=== PATIENT | female | born 1950 | race Caucasian/White ===

== ENCOUNTER 2017-01-31 19:07 | Inpatient (IN) | payer OTHER, MEDICARE ==
[~2017-01-31] VITALS: Ht 157.5 cm; Wt 70.2 kg
[~2017-01-31 19:07] MED LIST: ALPRAZOLAM0.5 MG PO; AMARYL2 MG PO; AMBIEN10 MG PO; ASPIR-TRIN325 M1 PO; Aggrenox PO; Aldactone PO; Augmentin PO; BENICAR40 MG PO; BRILINTA90 MG PO; CATAPRES-TTS 21 EACH TD; CILOSTAZOL50 MG PO; CLONIDINE1 EAC1 TD; COZAAR100 MG PO; CRESTOR40 MG PO; Cozaar PO; Ecotrin PO; FENOFIBRATE160 M1 PO; FIORICET,ESG1 TABLET PO; FLEXERIL5 MG PO; FOLIC ACID0.4 MG PO; FOLIC ACID0.8 MG PO; Flexeril PO; GABAPENTIN100 MG PO; INDERAL LA60 MG PO; ISOSORBIDE MONO30 MG PO; Imdur PO; LABETALOL HCL100 MG PO; LEXAPRO20 MG; LEXAPRO20 MG PO; LO-DOSE ASPIRIN81 M1 PO; LOFIBRA,TRIGLI160 MG PO; LOSARTAN POTAS100 MG PO; LOSARTAN POTASS50 MG PO; LOTRISONE LOTIO30 ML TP; LOVAZA1 GM PO; Lofibra PO; Lovaza PO; METOPROLOL SUCC25 MG PO; METOPROLOL SUCC50 MG PO; MOXEZA3 ML LEFT EYE; NITROSTAT0.4 MG SL; NORVASC5 MG PO; Normodyne,Trandate PO; Norvasc PO; OMEPRAZOLE40 M1 PO; PHISOHEX148 ML TP; Pletal PO; RANEXA500 MG PO; SKELAXIN400 M1 PO; SPIRONOLACTONE50 MG PO; Skelaxin PO; VOLTAREN75 MG PO; XANAX0.5 MG PO; Xanax PO; ZOLPIDEM TARTRA10 MG PO
[2017-01-31 19:29] LABS: HEMATOCRIT 18.8 % (36.0-46.0); MCH 26.2 PG (29.0-34.0); MCHC 29.8 G/DL (30.0-36.0); MCV 87.9 FL (83-99); MEAN PLAT.VOLUME 10.6 uM^3 (9.5-12.4); PLATELET COUNT 445 K/uL (156-360); RBC DIS.WIDTH-CV 16.3 % (11.8-14.6); RBC DIS.WIDTH-SD 49.6 % (39-53); RED BLOOD COUNT 2.14 M/uL (3.80-5.20)
[2017-01-31 19:34] LABS: CHLORIDE 110 mEq/L (99-109); POTASSIUM 3.9 mEq/L (3.7-5.4); SODIUM 140 mEq/L (136-147)
[2017-01-31 19:36] LABS: GLUCOSE 189 mg/dL (70-99)
[2017-01-31 19:37] LABS: ANION GAP 11 MEQ/L (2-14)
[2017-01-31 19:40] LABS: GFR ESTIMATE (CALCULATED) 52 mL/min/
[2017-01-31 19:41] LABS: UREA NITROGEN (BUN) 24 mg/dL (9-23)
[2017-01-31 19:46] LABS: TROP-I INTERPRETATION NEGATIVE; TROPONIN-I 0.01 ng/mL (0.0-0.30)
[2017-01-31 19:54] LABS: EOSINOPHIL (%) 1.7 % (0-5); EOSINOPHIL COUNT 0.2 K/uL (0-0.3); IMMATURE GRANULOCYTE (%) 0.4 % (0.0-0.7); IMMATURE GRANULOCYTE COUNT 0.6 K/uL; LYMPHOCYTE COUNT 2.4 K/uL (1.0-2.8); MONOCYTE (%) 6.4 % (3-12); MONOCYTE COUNT 0.9 K/uL (0-0.8); NEUTROPHIL (%) 74.1 % (45-76); NEUTROPHIL COUNT 10.5 K/uL (1.8-6.4)
[2017-01-31 20:03] LABS: TOTAL BILIRUBIN 0.2 mg/dL (0.0-1.0)
[2017-01-31 20:04] LABS: ALKALINE PHOSPHATASE 116 IU/L (3-129)
[2017-01-31 20:06] LABS: DIRECT BILIRUBIN 0.1 mg/dL (0.0-0.3)
[2017-01-31 21:20] VITALS: BP 168/99
[2017-01-31] MEDS ORDERED: RANEXA500 MG PO (21:20)
[2017-01-31 21:39] VITALS: BP 171/100
[2017-01-31 22:37] VITALS: BP 116/78
[2017-01-31 23:25] VITALS: BP 184/96
[2017-01-31 23:44] VITALS: BP 165/109
[2017-02-01] VITALS (10 sets, daily range): BP systolic 98–184; BP diastolic 57–92
[2017-02-01 02:45] LABS: MCV 88.5 FL (83-99)
[2017-02-01 03:02] LABS: TROP-I INTERPRETATION NEGATIVE; TROPONIN-I 0.04 ng/mL (0.0-0.30)
[2017-02-01 06:37] LABS: POINT-OF-CARE METER ID UU13113781
[2017-02-01 06:56] LABS: HEMATOCRIT 29.4 % (36.0-46.0)
[2017-02-01 08:39] LABS: TROP-I INTERPRETATION NEGATIVE; TROPONIN-I 0.05 ng/mL (0.0-0.30)
[2017-02-01 08:47] LABS: Estimated Average Glucose 128 mg/dL (70-123); HEMOGLOBIN A1c (GLYCOHEMOGLOB) 6.1 % HGB (Below 5.7)
[2017-02-01 12:49] LABS: MCV 87.1 FL (83-99)
[2017-02-01 13:02] LABS: PROTHROMBIN TIME 10.2 (9.2-11.2)
[2017-02-01 13:05] LABS: GLUCOSE 141 mg/dL (70-99)
[2017-02-01 19:25] LABS: HEMATOCRIT 28.4 % (36.0-46.0); MCV 87.9 FL (83-99)
[2017-02-01 20:54] LABS: POINT-OF-CARE METER ID UU13113698
[2017-02-02 00:27] LABS: HEMATOCRIT 27.5 % (36.0-46.0); MCV 87.9 FL (83-99)
[2017-02-02 04:50] VITALS: BP 104/50
[2017-02-02 05:15] LABS: POINT-OF-CARE METER ID UU13113781
[2017-02-02 07:27] LABS: ALKALINE PHOSPHATASE 89 IU/L (3-129); ANION GAP 8 MEQ/L (2-14); CHLORIDE 108 MEQ/L (99-109); GFR ESTIMATE (CALCULATED) 52 mL/min/; GLUCOSE 119 mg/dL (70-99); POTASSIUM 4.1 MEQ/L (3.7-5.4); SAMPLE HEMOLYSIS CHECK 0; SAMPLE ICTERIC CHECK 0; SAMPLE LIPEMIA CHECK 0; SODIUM 141 MEQ/L (136-147); TOTAL BILIRUBIN 0.3 MG/DL (0.0-1.0); UREA NITROGEN (BUN) 22 mg/dL (9-23)
[2017-02-02 07:38] LABS: EOSINOPHIL (%) 2.2 % (0-5); EOSINOPHIL COUNT 0.2 K/uL (0-0.3); HEMATOCRIT 29.3 % (36.0-46.0); IMMATURE GRANULOCYTE (%) 0.4 % (0.0-0.7); LYMPHOCYTE COUNT 2.1 K/uL (1.0-2.8); MCH 28.4 PG (29.0-34.0); MCHC 32.1 G/DL (30.0-36.0); MCV 88.5 FL (83-99); MEAN PLAT.VOLUME 10.9 uM^3 (9.5-12.4); MONOCYTE (%) 8.4 % (3-12); MONOCYTE COUNT 0.8 K/uL (0-0.8); NEUTROPHIL (%) 65.3 % (45-76); NEUTROPHIL COUNT 5.9 K/uL (1.8-6.4); RBC DIS.WIDTH-CV 15.9 % (11.8-14.6); RBC DIS.WIDTH-SD 50.5 % (39-53)
[2017-02-02 07:39] LABS: PLATELET COUNT 257 K/uL (156-360); RED BLOOD COUNT 3.31 M/uL (3.80-5.20); WHITE BLOOD COUNT 9.1 K/uL (4.1-10.2)
[2017-02-02 08:52] VITALS: BP 123/67
[2017-02-02 11:20] VITALS: BP 115/65
[2017-02-02 12:12] LABS: POINT-OF-CARE METER ID UU13113698
[2017-02-02 16:28] VITALS: BP 170/93
[2017-02-02 17:46] LABS: POINT-OF-CARE METER ID UU13113698
[2017-02-02 19:52] VITALS: BP 160/93
[2017-02-02 23:20] VITALS: BP 166/84
[2017-02-02 23:55] LABS: POINT-OF-CARE METER ID UU14174216
[2017-02-03 04:35] VITALS: BP 146/74
[2017-02-03 07:01] LABS: HEMATOCRIT 29.6 % (36.0-46.0); MCHC 31.1 G/DL (30.0-36.0); MEAN PLAT.VOLUME 11.1 uM^3 (9.5-12.4); PLATELET COUNT 265 K/uL (156-360); RBC DIS.WIDTH-CV 16.2 % (11.8-14.6); RBC DIS.WIDTH-SD 51.4 % (39-53); RED BLOOD COUNT 3.29 M/uL (3.80-5.20); WHITE BLOOD COUNT 8.2 K/uL (4.1-10.2)
[2017-02-03 07:28] LABS: ANION GAP 9 MEQ/L (2-14); CHLORIDE 106 MEQ/L (99-109); GFR ESTIMATE (CALCULATED) 59 mL/min/; SAMPLE HEMOLYSIS CHECK 0; SAMPLE ICTERIC CHECK 0; SAMPLE LIPEMIA CHECK 0; SODIUM 142 MEQ/L (136-147); UREA NITROGEN (BUN) 15 mg/dL (9-23)
[2017-02-03 07:30] LABS: GLUCOSE 190 mg/dL (70-99)
[2017-02-03 08:00] LABS: POINT-OF-CARE USER ID NUTSLF44
[2017-02-03 09:16] VITALS: BP 157/83
[2017-02-03] MEDS ORDERED: PROTONIX40 MG PO (09:29)
[2017-02-03] MEDS ORDERED: NICOTINE PATCH1 EAC2 TD (09:29)
[2017-02-03] MEDS ORDERED: IRON325 MG PO (09:32)
[2017-02-03 10:26] LABS: POC NON-PRINT COM 1 ND
[2017-02-03] MEDS ORDERED: NICODERM CQ1 EAC2 TD (14:08)
[2017-02-03] MEDS ORDERED: NEURONTIN100 MG PO (14:09)
[2017-02-03] MEDS ORDERED: XANAX0.5 MG PO (14:10)
[2017-02-03] MEDS ORDERED: ISOSORBIDE MONO30 MG PO (14:11)
[2017-02-03] MEDS ORDERED: SPIRONOLACTONE50 MG PO (14:12)
[2017-02-03] MEDS ORDERED: BRILINTA90 MG PO (15:35)
== END 2017-02-03 11:13 | disposition home or self-care (01) | DRG 378 ==
LOC: EME → EDBD 19:07 → EME 19:07 → EDOF 22:29 → 4EAST 22:29
PROVIDERS: Family Medicine; Hospitalist; Internal Medicine
PROC: 30233N1 Transfusion of Nonautologous Red Blood Cells into Peripheral Vein, Percutaneous Approach (ICD-10-PCS; principal; 2017-02-01)
PROC: 0DB68ZX Excision of Stomach, Via Natural or Artificial Opening Endoscopic, Diagnostic (ICD-10-PCS; 2017-02-02)
DX: K29.01 Acute gastritis with bleeding (principal); D62 Acute posthemorrhagic anemia; J44.9 Chronic obstructive pulmonary disease, unspecified; I70.1 Atherosclerosis of renal artery; I69.398 Other sequelae of cerebral infarction; E11.9 Type 2 diabetes mellitus without complications; D50.0 Iron deficiency anemia secondary to blood loss (chronic); I10 Essential (primary) hypertension; I25.118 Atherosclerotic heart disease of native coronary artery with other forms of angina pectoris; I73.9 Peripheral vascular disease, unspecified; Z95.1 Presence of aortocoronary bypass graft; F17.210 Nicotine dependence, cigarettes, uncomplicated; Z85.118 Personal history of other malignant neoplasm of bronchus and lung; K20.9 Esophagitis, unspecified; K26.9 Duodenal ulcer, unspecified as acute or chronic, without hemorrhage or perforation; K31.9 Disease of stomach and duodenum, unspecified; F41.9 Anxiety disorder, unspecified; E66.9 Obesity, unspecified; Z95.5 Presence of coronary angioplasty implant and graft; Z95.2 Presence of prosthetic heart valve; E78.5 Hyperlipidemia, unspecified; I25.2 Old myocardial infarction; K44.9 Diaphragmatic hernia without obstruction or gangrene; K29.80 Duodenitis without bleeding; R47.9 Unspecified speech disturbances; T39.395A Adverse effect of other nonsteroidal anti-inflammatory drugs [NSAID], initial encounter
CPT/HCPCS: 36415; 71020; 74177; 80048; 80053; 80076; 82272; 82948; 83036; 84484; 84999; 85014; 85018; 85025; 85027; 85610; 86850; 86900; 86901; 86920; 88305; 88342 TC; 93005; 99281; 99285; C9113; J1815; J1940; J2270; J2405; P9016; P9040

== ENCOUNTER 2017-02-05 07:11 | Day surgery (SDC) | payer OTHER, MEDICARE ==
[~2017-02-05] VITALS: Ht 157.5 cm; Wt 67.1 kg
[~2017-02-05 07:11] MED LIST changes: +IRON325 MG PO; +NEURONTIN100 MG PO; +NICODERM CQ1 EAC2 TD; +NICOTINE PATCH1 EAC2 TD; +PROTONIX40 MG PO
[2017-02-05 07:42] LABS: POINT-OF-CARE METER ID UU14174212
[2017-02-05 07:46] VITALS: BP 86/52
[2017-02-05 08:24] LABS: HEMATOCRIT 29.2 % (36.0-46.0); MCV 91.3 FL (83-99)
[2017-02-05 09:03] LABS: METH RESISTANT S AUREUS PCR POSITIVE (NEGATIVE)
[2017-02-05 09:04] LABS: PROBE CHECK PASS
[2017-02-05 11:34] VITALS: BP 132/70
== END 2017-02-05 11:35 | disposition home or self-care (01) ==
LOC: SDC
PROVIDERS: Anesthesiology; Orthopaedic Surgery Hand Surgery
PROC: 0JBJ0ZX Excision of Right Hand Subcutaneous Tissue and Fascia, Open Approach, Diagnostic (ICD-10-PCS; principal; 2017-02-05)
DX: M79.641 Pain in right hand (principal); M79.89 Other specified soft tissue disorders; M79.5 Residual foreign body in soft tissue; S61.411S Laceration without foreign body of right hand, sequela; E11.9 Type 2 diabetes mellitus without complications; I10 Essential (primary) hypertension; Z86.73 Personal history of transient ischemic attack (TIA), and cerebral infarction without residual deficits; Z85.118 Personal history of other malignant neoplasm of bronchus and lung; Z82.49 Family history of ischemic heart disease and other diseases of the circulatory system; Z83.3 Family history of diabetes mellitus; Z79.82 Long term (current) use of aspirin; Z79.01 Long term (current) use of anticoagulants
CPT/HCPCS: 82948; 85014; 85018; 87641; 88304; J0690; J2250; J2405; J3010

== ENCOUNTER → 2017-02-08 | Outpatient (CLI) | payer OTHER, MEDICARE | END | disposition home or self-care (01) | LOC: NUC 09:00 | DX: K92.2 Gastrointestinal hemorrhage, unspecified (principal) | CPT/HCPCS: 78278; A9512; A9560 ==

== ENCOUNTER 2017-11-03 14:38 | Inpatient (IN) | payer OTHER, MEDICARE ==
[~2017-11-03] VITALS: Ht 157.5 cm; Wt 76.5 kg
[~2017-11-03 14:38] MED LIST changes: +ALDACTONE25 MG PO; +IMDUR60 MG PO; -LOFIBRA,TRIGLI160 MG PO
[2017-11-03 15:14] LABS: BASOPHIL COUNT 0.1 K/uL (0-0.1); EOSINOPHIL COUNT 0.3 K/uL (0-0.3); HEMATOCRIT 38.4 % (36.0-46.0); IMMATURE GRANULOCYTE (%) 0.6 % (0.0-0.7); IMMATURE GRANULOCYTE COUNT 0.1 K/uL; INSTRUMENT ABS NEUTROPHIL CT 10.5 K/uL; LYMPHOCYTE COUNT 2.1 K/uL (1.0-2.8); MCH 30.4 PG (29.0-34.0); MCHC 33.6 G/DL (30.0-36.0); MCV 90.6 FL (83-99); MEAN PLAT.VOLUME 11.1 uM^3 (9.5-12.4); NEUTROPHIL (%) 74.9 % (45-76); NEUTROPHIL COUNT 10.5 K/uL (1.8-6.4); PLATELET COUNT 429 K/uL (156-360); RBC DIS.WIDTH-CV 13.5 % (11.8-14.6); RED BLOOD COUNT 4.24 M/uL (3.80-5.20)
[2017-11-03 15:22] LABS: CHLORIDE 104 mEq/L (99-109); POTASSIUM 4.9 mEq/L (3.7-5.4); SODIUM 134 mEq/L (136-147)
[2017-11-03 15:24] LABS: GLUCOSE 132 mg/dL (70-99)
[2017-11-03 15:25] LABS: ANION GAP 9 MEQ/L (2-14)
[2017-11-03 15:28] LABS: GFR ESTIMATE (CALCULATED) 26 mL/min/
[2017-11-03 15:29] LABS: UREA NITROGEN (BUN) 49 mg/dL (9-23)
[2017-11-03 16:53] LABS: ADD MIUA? YES; BILIRUBIN NEGATIVE; BLOOD MODERATE; COLOR YELLOW ((YELLOW)); GLUCOSE (STRIP) NEGATIVE; KETONES 5; LEUKOCYTES LARGE; NITRITE NEGATIVE; PROTEIN (STRIP) NEGATIVE; UROBILINOGEN 0.2 MG/DL (0.2-1.0)
[2017-11-03 17:05] LABS: BACTERIA 1+ /HPF; EPITHELIAL CELLS RARE /HPF; MUCUS TRACE /LPF; RED BLOOD CELLS 15-20 /HPF (0-5); UCUL ADDED? YES; WHITE BLOOD CELLS TNTC /HPF (0-5)
[2017-11-03] MEDS ORDERED: ACIDOPHILUS LA1 EAC1 PO (20:08)
[2017-11-03] MEDS ORDERED: ROXICODONE5 MG PO (20:08)
[2017-11-03] MEDS ORDERED: CEFTIN250 MG PO (20:10)
[2017-11-03] MEDS ORDERED: COZAAR50 MG PO (20:11)
[2017-11-03] MEDS ORDERED: ULTRAM50 MG PO (20:11)
[2017-11-03] MEDS ORDERED: BACTRIM,SEPT1 TABLET PO (20:11)
[2017-11-03 23:05] VITALS: BP 113/60
[2017-11-04 04:02] VITALS: BP 110/62
[2017-11-04 07:10] VITALS: BP 101/55
[2017-11-04 07:19] LABS: BASOPHIL COUNT 0.1 K/uL (0-0.1); EOSINOPHIL (%) 3.2 % (0-5); EOSINOPHIL COUNT 0.3 K/uL (0-0.3); HEMATOCRIT 32.1 % (36.0-46.0); IMMATURE GRANULOCYTE (%) 0.6 % (0.0-0.7); IMMATURE GRANULOCYTE COUNT 0.1 K/uL; INSTRUMENT ABS NEUTROPHIL CT 5.5 K/uL; LYMPHOCYTE COUNT 2.1 K/uL (1.0-2.8); MCH 29.9 PG (29.0-34.0); MCHC 32.7 G/DL (30.0-36.0); MCV 91.5 FL (83-99); MEAN PLAT.VOLUME 11.2 uM^3 (9.5-12.4); MONOCYTE (%) 9.5 % (3-12); MONOCYTE COUNT 0.8 K/uL (0-0.8); NEUTROPHIL (%) 62.3 % (45-76); NEUTROPHIL COUNT 5.5 K/uL (1.8-6.4); PLATELET COUNT 313 K/uL (156-360); RBC DIS.WIDTH-CV 13.5 % (11.8-14.6); RBC DIS.WIDTH-SD 45.1 % (39-53); RED BLOOD COUNT 3.51 M/uL (3.80-5.20); WHITE BLOOD COUNT 8.8 K/uL (4.1-10.2)
[2017-11-04 07:20] LABS: ANION GAP 5 MEQ/L (2-14); CHLORIDE 107 MEQ/L (99-109); GFR ESTIMATE (CALCULATED) 34 mL/min/; POTASSIUM 4.6 MEQ/L (3.7-5.4); SAMPLE HEMOLYSIS CHECK 0; SAMPLE ICTERIC CHECK 0; SAMPLE LIPEMIA CHECK 0; SODIUM 135 MEQ/L (136-147); UREA NITROGEN (BUN) 40 mg/dL (9-23)
[2017-11-04 07:23] LABS: GLUCOSE 275 mg/dL (70-99)
[2017-11-04 09:24] LABS: POINT-OF-CARE METER ID UU14174225
[2017-11-04 12:14] VITALS: BP 93/66
[2017-11-04 12:47] LABS: CREATINE KINASE 31 IU/L (1-294)
[2017-11-04 12:53] LABS: POINT-OF-CARE METER ID UU13113717
[2017-11-04 13:29] LABS: POINT-OF-CARE METER ID UU13113717
[2017-11-04 14:34] LABS: POINT-OF-CARE METER ID UU13113717
[2017-11-04 16:44] VITALS: BP 119/69
[2017-11-04 17:40] LABS: POINT-OF-CARE METER ID UU14174225
[2017-11-04 19:45] VITALS: BP 134/66; BP 98/60
[2017-11-04 23:48] LABS: POINT-OF-CARE METER ID UU14174225
[2017-11-04 23:51] VITALS: BP 128/71
[2017-11-05 03:52] VITALS: BP 122/68
[2017-11-05 05:33] LABS: POINT-OF-CARE METER ID UU14174225
[2017-11-05 06:53] LABS: HEMATOCRIT 33.3 % (36.0-46.0); MCH 29.6 PG (29.0-34.0); MCHC 32.7 G/DL (30.0-36.0); MCV 90.5 FL (83-99); MEAN PLAT.VOLUME 10.6 uM^3 (9.5-12.4); PLATELET COUNT 307 K/uL (156-360); RBC DIS.WIDTH-CV 13.4 % (11.8-14.6); RBC DIS.WIDTH-SD 44.5 % (39-53); RED BLOOD COUNT 3.68 M/uL (3.80-5.20); WHITE BLOOD COUNT 6.6 K/uL (4.1-10.2)
[2017-11-05 07:31] LABS: ANION GAP 6 MEQ/L (2-14); CHLORIDE 109 MEQ/L (99-109); GFR ESTIMATE (CALCULATED) 47 mL/min/; POTASSIUM 4.4 MEQ/L (3.7-5.4); SAMPLE HEMOLYSIS CHECK 0; SAMPLE ICTERIC CHECK 0; SAMPLE LIPEMIA CHECK 0; SODIUM 138 MEQ/L (136-147); UREA NITROGEN (BUN) 25 mg/dL (9-23)
[2017-11-05 07:32] LABS: GLUCOSE 124 mg/dL (70-99); VANCOMYCIN, TROUGH 8.6 MCG/ML (10-20)
[2017-11-05 07:48] VITALS: BP 111/69
[2017-11-05 11:33] VITALS: BP 136/76
[2017-11-05 12:19] LABS: POINT-OF-CARE METER ID UU14174225
[2017-11-05 15:47] VITALS: BP 125/76
[2017-11-05 18:17] LABS: POINT-OF-CARE METER ID UU13113717
[2017-11-05 23:12] VITALS: BP 136/65
[2017-11-06 00:15] VITALS: BP 137/72
[2017-11-06 00:18] LABS: POINT-OF-CARE METER ID UU14174225
[2017-11-06 06:22] LABS: POINT-OF-CARE METER ID UU14174225
[2017-11-06 07:37] VITALS: BP 132/70
[2017-11-06] MEDS ORDERED: VIBRAMYCIN100 MG PO (09:53)
[2017-11-06 13:00] LABS: POINT-OF-CARE METER ID UU13113717
[2017-11-06 16:56] LABS: POINT-OF-CARE METER ID UU13113675
[2017-11-06 23:59] VITALS: BP 132/77
[2017-11-07 00:25] LABS: POINT-OF-CARE METER ID UU14174225
[2017-11-07 06:13] LABS: MCH 29.8 PG (29.0-34.0); MCHC 32.6 G/DL (30.0-36.0); MCV 91.6 FL (83-99); MEAN PLAT.VOLUME 10.9 uM^3 (9.5-12.4); PLATELET COUNT 322 K/uL (156-360); RBC DIS.WIDTH-CV 13.4 % (11.8-14.6); RBC DIS.WIDTH-SD 45.3 % (39-53); RED BLOOD COUNT 3.82 M/uL (3.80-5.20); WHITE BLOOD COUNT 7.6 K/uL (4.1-10.2)
[2017-11-07 06:40] LABS: ANION GAP 8 MEQ/L (2-14); CHLORIDE 106 MEQ/L (99-109); GFR ESTIMATE (CALCULATED) 47 mL/min/; GLUCOSE 193 mg/dL (70-99); POTASSIUM 4.5 MEQ/L (3.7-5.4); SAMPLE HEMOLYSIS CHECK 0; SAMPLE ICTERIC CHECK 0; SAMPLE LIPEMIA CHECK 0; SODIUM 138 MEQ/L (136-147); UREA NITROGEN (BUN) 19 mg/dL (9-23)
[2017-11-07 07:55] VITALS: BP 117/73
[2017-11-07] MEDS ORDERED: FLORASTOR250 MG PO (10:33)
[2017-11-07] MEDS ORDERED: DOXYCYCLINE HY100 MG PO (11:18)
== END 2017-11-07 12:10 | disposition home or self-care (01) | DRG 746 ==
LOC: EME 14:38 → EDOF 20:50 → 5SOUTH 20:50 → ENRESERV 20:51 → 5SOUTH 22:22 → ENPENDDIS 11-07 → 5SOUTH 11-07 12:10
PROVIDERS: Hospitalist; Internal Medicine; Physician Assistant Medical
PROC: 0U9MXZZ Drainage of Vulva, External Approach (ICD-10-PCS; principal; 2017-11-06)
DX: N76.4 Abscess of vulva (principal); N17.1 Acute kidney failure with acute cortical necrosis; N14.1 Nephropathy induced by other drugs, medicaments and biological substances; T46.5X5A Adverse effect of other antihypertensive drugs, initial encounter; T50.2X5A Adverse effect of carbonic-anhydrase inhibitors, benzothiadiazides and other diuretics, initial encounter; T37.0X5A Adverse effect of sulfonamides, initial encounter; I70.1 Atherosclerosis of renal artery; I95.9 Hypotension, unspecified; E87.1 Hypo-osmolality and hyponatremia; E86.1 Hypovolemia; E86.0 Dehydration; E11.51 Type 2 diabetes mellitus with diabetic peripheral angiopathy without gangrene; I10 Essential (primary) hypertension; I25.10 Atherosclerotic heart disease of native coronary artery without angina pectoris; J44.9 Chronic obstructive pulmonary disease, unspecified; E78.5 Hyperlipidemia, unspecified; I25.2 Old myocardial infarction; Z86.73 Personal history of transient ischemic attack (TIA), and cerebral infarction without residual deficits; F41.9 Anxiety disorder, unspecified; Q43.3 Congenital malformations of intestinal fixation; F17.290 Nicotine dependence, other tobacco product, uncomplicated; Z71.6 Tobacco abuse counseling; Z85.118 Personal history of other malignant neoplasm of bronchus and lung; Z90.2 Acquired absence of lung [part of]; Z95.1 Presence of aortocoronary bypass graft; Z95.3 Presence of xenogenic heart valve; Z95.5 Presence of coronary angioplasty implant and graft; Z78.0 Asymptomatic menopausal state; Z86.14 Personal history of Methicillin resistant Staphylococcus aureus infection; Z86.79 Personal history of other diseases of the circulatory system; Z79.82 Long term (current) use of aspirin; Z82.49 Family history of ischemic heart disease and other diseases of the circulatory system; Z83.3 Family history of diabetes mellitus
CPT/HCPCS: 36415; 74176; 80048; 80053; 80202; 81003; 82550; 82948; 83605; 85025; 85027; 86850; 86900; 86901; 87040; 87070; 87075; 87076; 87086; 87185; 87205; 87493; 99281; 99285; J0295; J1170; J1644; J1650; J1815; J2405; J3010; J3370; J7030; J7050; J7120